=== PATIENT | female | born 1975 | race Hispanic/Latino ===

== ENCOUNTER 2025-10-28 10:55 | Day surgery (SDC) | payer OTHER ==
[~2025-10-28] VITALS: Ht 152 cm; Wt 68.0 kg
[~2025-10-28 10:55] MED LIST: IBLOOD GLUCOSE TEST STRIP 1 EA TEST VI PRN; LACTATED RINGER'S 1,000 ML IV SCH; LIDOCAINE HCL 1% 5 ML SDV INJ ONE; XELODA500 MG PO
[2025-10-28 11:16] VITALS: BP 103/65
[2025-10-28] MEDS ORDERED: LIDOCAINE HCL 2% 5 ML SDV ONE (13:03)
--- NOTE | 2025-10-28 13:52 | NUR ---
10/28/25 1352 Sammi Traylor 1326-PT ARRIVES TO PACU, VIA STRETCHER, PT RESTING ON LT SIDE, PT NOT RESPONSIVE TO TACTILE STIMULI, RR EVEN AND UNLABORED, VSS ON 5L VIA MASK. 1345-PT REACTIVE TO TACTILE STIMULI BUT CONTINUES TO REST W/ EYES CLOSED, RR EVEN AND UNLABORED, VSS ON 5L VIA MASK.
[2025-10-28 14:37] VITALS: BP 97/39
== END 2025-10-28 14:45 | disposition home or self-care (01) ==
LOC: DS 10:55 → OPS 10:55 → DS 13:00 → OPS 13:00
PROVIDERS: ATTEND Surgery
PROC: 0DJD8ZZ Inspection of Lower Intestinal Tract, Via Natural or Artificial Opening Endoscopic (ICD-10-PCS; principal; 2025-10-28 12:05)
DX: R19.7 Diarrhea, unspecified (principal); Z85.048 Personal history of other malignant neoplasm of rectum, rectosigmoid junction, and anus; Z98.0 Intestinal bypass and anastomosis status
CPT/HCPCS: 00811; 84703; J2003; J2704